=== PATIENT | male | born 1995 | race Caucasian/White ===

== ENCOUNTER 2021-05-02 23:45 | Inpatient (IN) | payer OTHER ==
[~2021-05-02] VITALS: Ht 167.6 cm; Wt 76.7 kg
[~2021-05-02 23:45] MED LIST: LODINE CAP 300300 MG PO; PHENERGAN 12.12.5 MG PR; ZOFRAN ODT 4 MG4 MG PO
[2021-05-03 00:38] LABS: HEMOGLOBIN 14.6 gm/dl (14.0-17.5); RED BLOOD COUNT 4.64 M/UL (4.20-5.50); WHITE BLOOD COUNT 20.5 K/UL (4.5-11.0)
[2021-05-03 00:52] LABS: BUN/CREATININE RATIO 18 (0-10)
[2021-05-03] MEDS ORDERED: BUSPIRONE HCL5 MG PO (05:16)
[2021-05-03] MEDS ORDERED: NOVOLOG FL100 UNIT/1 SC (05:17)
[2021-05-03] MEDS ORDERED: LANTUS SOL100 UNIT/1 SC (09:48)
[2021-05-03] MEDS ORDERED: TYLENOL EXTRA500 MG PO (09:48)
[2021-05-03 11:11] LABS: ACINETOBACTER BAUMANNII Not Detected (Negative); CANDIDA ALBICANS Not Detected (Negative); CANDIDA KRUSEI Not Detected (Negative); CANDIDA TROPICALIS Not Detected (Negative); ENTEROCOCCUS Not Detected (Negative); ESCHERICHIA COLI Not Detected (Negative); HAEMOPHILUS INFLUENZAE Not Detected (Negative); KLEBSIELLA OXYTOCA Not Detected (Negative); KLEBSIELLA PNEUMONIAE Not Detected (Negative); KPC-CARBAPENEM-RESISTANCE GENE Not Detected (Negative); PROTEUS Not Detected (Negative); PSEUDOMONAS AERUGINOSA Not Detected (Negative); SERRATIA MARCESANS Not Detected (Negative); STAPHYLOCOCCUS Not Detected (Negative); STAPHYLOCOCCUS AUREUS Not Detected (Negative); STREP AGALACTIAE (GROUP B) Not Detected (Negative); STREP PYOGENES (GROUP A) Not Detected (Negative); mecA (METHICILLIN RESIST GENE Not Detected (Negative); vanA/B (VANCOMYCIN RESIST GENE Not Detected (Negative)
[2021-05-03 13:03] LABS: STREPTOCOCCUS DETECTED (Negative)
[2021-05-04 03:36] LABS: HEMOGLOBIN 11.5 gm/dl (14.0-17.5); RED BLOOD COUNT 3.7 M/UL (4.20-5.50)
[2021-05-04 04:10] LABS: BUN/CREATININE RATIO 13 (0-10)
[2021-05-04 22:29] LABS: BORDETELLA PARAPERTUSSIS Not Detected (Not Detectd); BORDETELLA PERTUSSIS Not Detected (Not Detectd); CHLAMYDIA PNEUMONIAE Not Detected (Not Detectd); CORONAVIRUS HKU1 Not Detected (Not Detectd); CORONAVIRUS NL63 Not Detected (Not Detectd); CORONOAVIRUS 229E Not Detected (Not Detectd); HUMAN METAPNEUMOVIRUS Not Detected (Not Detectd); HUMAN RHINOVIRUS/ENTEROVIRUS Not Detected (Not Detectd); INFLUENZA A Not Detected (Not Detectd); INFLUENZA B Not Detected (Not Detectd); MYCOPLASMA PNEUMONIAE Not Detected (Not Detectd); PARAINFLUENZA VIRUS 1 Not Detected (Not Detectd); PARAINFLUENZA VIRUS 2 Not Detected (Not Detectd); PARAINFLUENZA VIRUS 3 Not Detected (Not Detectd); PARAINFLUENZA VIRUS 4 Not Detected (Not Detectd); RESPIRATORY SYNCYTIAL VIRUS Not Detected (Not Detectd)
[2021-05-04 23:38] LABS: CORONAVIRUS OC43 DETECTED (Not Detectd); SARS-CoV-2 NOT DETECTED (Not Detectd)
[2021-05-05 04:01] LABS: RED BLOOD COUNT 3.91 M/UL (4.20-5.50); WHITE BLOOD COUNT 15.7 K/UL (4.5-11.0)
[2021-05-05 04:26] LABS: BUN/CREATININE RATIO 12 (0-10)
--- NOTE | 2021-05-06 09:03 | NUR ---
05/06/20 0900 RECEIVED CALL FROM LAB, STATES CBC WAS RESULTED WRONG THIS AM. CORRECT RESULTS HAVE BEEN RECEIVED. DR SALAMANCA NOTIFIED OF CORRECT RESULTS.
[2021-05-06 09:08] LABS: BUN/CREATININE RATIO 13 (0-10)
--- NOTE | 2021-05-06 14:55 | NUR ---
05/06/20 1450 REPORT CALLED TO [facility], SPOKE WITH ANNIE.
[2021-05-06] MEDS ORDERED: PROTONIX 40 MG40 M1 PO (15:46)
[2021-05-06] MEDS ORDERED: ZOFRAN 4 MG TAB4 MG PO (15:46)
[2021-05-06] MEDS ORDERED: ROCEPHIN IM/I2000 MG IV (15:46)
[2021-05-06] MEDS ORDERED: K-TAB ER20 MEQ PO (16:13)
== END 2021-05-06 18:06 | disposition home health service (06) | DRG 871 ==
LOC: ER1 23:45 → PROG CARE 05-03 03:16 → CDU 05-03 03:16 → PROG CARE 05-03 20:04
PROVIDERS: Internal Medicine; Physician Assistant; ADMIT Internal Medicine
PROC: B24BZZZ Ultrasonography of Heart with Aorta (ICD-10-PCS; principal; 2021-05-06)
DX: A40.8 Other streptococcal sepsis (principal); J96.01 Acute respiratory failure with hypoxia; J15.4 Pneumonia due to other streptococci; E87.2 Acidosis; E87.1 Hypo-osmolality and hyponatremia; Z20.822 Contact with and (suspected) exposure to COVID-19; R65.20 Severe sepsis without septic shock; E10.65 Type 1 diabetes mellitus with hyperglycemia; K21.9 Gastro-esophageal reflux disease without esophagitis; E87.6 Hypokalemia; Z86.16 Personal history of COVID-19; Z80.6 Family history of leukemia; Z79.899 Other long term (current) drug therapy
CPT/HCPCS: 0240U; 36415; 36600; 71045; 71046; 80048; 80053; 82803; 82962; 83605; 85025; 85027; 87040; 87070; 87077; 87150; 87186; 87205; 87633; 94664; 94760; 99285; C1751; J0456; J0696; J1650; J2185; J2405; J3370; J7030; J7070; Q9967

== ENCOUNTER 2021-05-14 15:53 | Emergency (ER) | payer OTHER ==
[~2021-05-14 15:53] MED LIST changes: +BUSPIRONE HCL5 MG PO; +K-TAB ER20 MEQ PO; +LANTUS SOL100 UNIT/1 SC; +NOVOLOG FL100 UNIT/1 SC; +PROTONIX 40 MG40 M1 PO; +ROCEPHIN IM/I2000 MG IV; +TYLENOL EXTRA500 MG PO; +ZOFRAN 4 MG TAB4 MG PO
[2021-05-14 16:56] LABS: HEMOGLOBIN 12.7 gm/dl (14.0-17.5); RED BLOOD COUNT 4.27 M/UL (4.20-5.50); WHITE BLOOD COUNT 9.5 K/UL (4.5-11.0)
[2021-05-14 17:17] LABS: BUN/CREATININE RATIO 17 (0-10)
[2021-05-14] MEDS ORDERED: IBUPROFEN400 MG PO (21:35)
== END 2021-05-14 22:00 | disposition home or self-care (01) ==
LOC: ER1 15:53
PROVIDERS: Physician Assistant
DX: M25.511 Pain in right shoulder (principal); J90 Pleural effusion, not elsewhere classified; M54.6 Pain in thoracic spine; E10.9 Type 1 diabetes mellitus without complications; F17.200 Nicotine dependence, unspecified, uncomplicated
CPT/HCPCS: 80053; 82550; 82553; 83874; 83880; 84484; 85025; 85610; 85730; 99284; Q9967